=== PATIENT | male | born 1975 | race Caucasian/White ===

== ENCOUNTER 2022-05-09 12:10 | Emergency (ER) | payer MEDICAID, SELFPAY ==
[2022-05-09] VITALS (7 sets, daily range): BP systolic 116–149; BP diastolic 77–97; PULSE 52–79; RESP 16–17; TEMP 36.4; O2SAT 93–100
--- NOTE | 2022-05-09 12:44 | ECG_ITS ---
[facility] Test Date: 2022-05-09 Pat Name: Juan Dey Department: Room: Gender: Male Processing Inspector: : 1975 Requested By: Alonso Bowman Order Number: [id number] Venancio MD: Charmaine Cuevas M.D. Measurements Intervals [place] Rate: 57 P: 59 [place]: 162 QRS: 74 QRSD: 103 T: 64 QT: 410 QTc: 400 Interpretive Statements SINUS BRADYCARDIA No previous ECG available for comparison Electronically Signed On 05-09-2022 21:21:21 CDT by Charmaine Cuevas M.D. [id number]
--- NOTE | 2022-05-09 12:44 | XR_ITS ---
WS: [id number] Exam: XR chest 1V portable [id number] Date/Time of Exam: 05/09/2022 1:01 PM Reason For Exam: dyspnea No priors. Findings: The lungs are clear and fully expanded. Costophrenic angles are sharp. No infiltrates. Bronchovascula r relief appears normal. Cardiac silhouette is unremarkable. Bony elements are intact. XR/XR chest 1V portable [id number] IMPRESSION: Unremarkable chest radiograph.
--- NOTE | 2022-05-09 12:52 | ED_ITS ---
HPI - General Adult General: Chief complaint: Nausea/Vomiting/Diarrhea Stated complaint: Dizzy, whole body numb, vertigo Time Seen by Provider: 05/09/22 12:43 History of Present Illness: Patient is a 47-year-old male with a history of vertigo who presents emergency room with nausea vomiting diaphoresis and vertigo-like sensation for the last hour. Patient says that his vertical sta rted all of a sudden. He reports b/l tinnitus in ears. He tells me in the past when he had vertical symptoms, he has tinnitus in both ears. Patient says that the versus tinnitus that he has experienced so far. Patient says that he had weakness in all of extremity and and vertigo was debilitating to the point where he has a white count. Patient reports multiple episodes of emesis. Shortly bef ore coming to the emergency room, patient reports that his vertigo sensation has stopped suddenly. Patient reports diaphoresis. Patient reports brief shortness of breath but denies any active chest pain during the episode of vertigo. Onset:1 hr ago Duration:1 hr Location:home Severity:moderate/severe Associated symptoms: Reports dyspnea, malaise, nausea and vomiting; Deny chest pain, rash or palpitations Review of Systems Const: Reports: fatigue, malaise and other (light-headedness); Denies: fever(s) or chills Eyes: Denies: change in vision ENMT: Reports: other (+tinnitus b/l); Denies: mouth pain Card: Denies: chest pain or palpitations Resp: Reports: dyspnea; Denies: non-productive cough GI: Reports: nausea and vomiting; Denies: abdominal pain or diarrhea : Denies: dysuria Musc: Denies: extremity pain Skin/Breast: Denies: rash or new lesions Neuro: Reports: other (+vertigo); Denies: weakness in extremities Psych: Reports: other (Normal mood) Martinez/Lymph: Denies: easy bruising PFSH ED PFSH: Medical History MRSA (methicillin resistant Staphylococcus aureus) Tinnitus Vertigo Surgical History History of placement of ear tubes History of surgery on arm Social History Smoking and tobacco status: current every day smoker (half a pack) Alcohol intake: never Physical Exam Const: COMMON NORMALS: alert HENMT: COMMON NORMALS: atraumatic HEAD & SCALP: atraumatic MOUTH: moist mucous membranes not abnormal Eye: COMMON NORMALS: EOMs intact bilaterally and conjunctivae normal CONJUNCTIVA: Yes conjunctivae normal Neck/C-Spine: COMMON NORMALS: full ROM and supple Resp: COMMON NORMALS: normal respiratory effort and clear to auscultation bilaterally AUSCULTATION: clear to auscultation bilaterally Cardio: COMMON NORMALS: regular rate RATE: regular rate GI: COMMON NORMALS: Soft to palpation and non-tender PALPATION: Yes Soft to palpation Extremity: COMMON NORMALS: full ROM Neuro: SENSORIUM/ORIENTATION: Yes alert MOTOR EXAM: No Abnormal motor strength present and Other motor observations present (no focal motor deficits) OTHER: Mental status? Awake, alert, and oriented to self, year, month, location, and situation.? Following simple axial and appendicular commands.? Has appropriate fund of knowledge, comprehension, and insight.? Able to recall and understands pertinent aspects of medical history and current treatment status.? ? Language? Speech is fluent without word-finding difficulties.? Intact naming, expression, reception agent, and repetition.? ? Cranial nerves? 2,3,4,6: PERRL, EOMI with no nystagmus. 5: Intact sensation to light touch, symmetric? 7: Smile symmetrical, no facial droop.? 8: Hearing grossly intact.? 9,10: Normal palate movement.? 11: Normal strength in trapezius bilaterally 12: Tongue protrudes midline.? ? Motor examination? Normal bulk & tone. Strength as follows (R/L): Delts (5/5), Biceps (5/5), Triceps (5/5), Wrist ext (5/5), hip flexors (5/5), plantarflexors (5/5), dorsiflexors (5/5). Sensation? Light Touch: Grossly intact and equal in upper and lower extremities bilaterally? Romberg: Negative.? Distal joint position sense intact ? Coordination? Zywjzl-ko-nizd-finger movements intact without dysmetria or past-pointing.? Rapid fingertaps: preserved amplitude without decriment.? No tremor, myoclonus or truncal ataxia.? ? Gait/stance? Steady, normal narrow base gait with appropriate arm swing and turning.? Tandem gait without hesitation or loss of balance. Psych: COMMON NORMALS: speech normal SPEECH: Yes normal speech MOOD & AFFECT: Yes euthymic mood Course Vital Signs: Vital signs: Vital Signs Temperature 97.6 F 05/09/22 12:38 Pulse Rate 67 05/09/22 16:48 Respiratory Rate 17 05/09/22 16:48 Blood Pressure 133/94 05/09/22 16:48 Pulse Oximetry 93 05/09/22 16:48 [facility] - General Adult Medical Decision Making Patient is a 47-year-old male with history of prior vertigo presenting to the emergency room with concerns of sudden onset bilateral ear ringing and vertigo sensation stopped upon arrival. Patient arrives appears to be mildly diaphoretic. Rest of exam within normal limit. Patient is able to ambulate without any difficulty, patient has intact Romberg and balance. He had persistent vertigo-like symptoms. Decision was made to order CT head and CTA. Imaging study negative for any acute finding. Patient received IVF, meclizine and Ativan reports that his symptoms are significantly improved after observation for 2 hours I have given patient follow up with our senior case manager to be seen by our outpatient ENT for vertigo sensation. Patient aware of a call from our senior case manager to schedule for appointment(s) and verbalizes understanding of the importance of following up. Rx meclizine PRN vertigo Disposition: Discharge. Patient counseled regarding diagnostic impression, treatment plan. Patient given ED strict return precautions to return for continuation, worsening, or development of new symptoms. Instructed to f/u w/ ENT regarding symptoms today. Patient verbalized understanding. Lab Data : 05/09/22 13:00 05/09/22 13:00 Radiology Impressions Chest X-Ray 05/09/22 12:44 IMPRESSION: Unremarkable chest radiograph. Head CT 05/09/22 13:39 IMPRESSION: 1. No evidence of intracranial hemorrhage or mass effect. 2. Normal henderson-white differentiation. 3. No acute intracranial findings. Head/Neck CTA 05/09/22 13:39 IMPRESSION: 1. No significant ICA stenosis bilaterally. 2. Normal intracranial CTA. 3. Codominant and patent vertebral arteries bilaterally. Laboratory Results WBC 9.2 10^3/uL (4.0-10.0) 05/09/22 13:00 RBC 4.84 10^6/uL (4.1-5.3) 05/09/22 13:00 Hgb 15.4 g/dL (11.7-16.6) 05/09/22 13:00 Hct 43.1 % (42.0-52.0) 05/09/22 13:00 MCV 89.0 fl (80-94) 05/09/22 13:00 MCH 31.8 pg (28.0-34.0) 05/09/22 13:00 MCHC 35.7 g/dL (30.0-36.0) 05/09/22 13:00 RDW 12.3 % (12.1-15.1) 05/09/22 13:00 Plt Count 246 10^3/cmm (130-400) 05/09/22 13:00 MPV 10.9 fL (7.4-10.4) H 05/09/22 13:00 Neut % (Auto) 47.0 % 05/09/22 13:00 Lymph % (Auto) 43.7 % 05/09/22 13:00 Yell % (Auto) 7.3 % 05/09/22 13:00 Eos % (Auto) 1.5 % 05/09/22 13:00 Baso % (Auto) 0.3 % 05/09/22 13:00 Neut # (Auto) 4.34 10^3/uL (1.8-7.7) 05/09/22 13:00 Lymph # (Auto) 4.0 10^3/uL (0.8-4.8) 05/09/22 13:00 Yell # (Auto) 0.7 10^3/uL (0.2-0.9) 05/09/22 13:00 Eos # (Auto) 0.1 10^3/uL (0.0-0.8) 05/09/22 13:00 Baso # (Auto) 0.0 10^3/uL (0.0-0.1) 05/09/22 13:00 Nucleated RBC % (auto) 0 % 05/09/22 13:00 Nucleated RBCs # 0.0 /100WBC 05/09/22 13:00 Sodium 135 mmol/L (136-145) L 05/09/22 13:00 Potassium 4.8 mmol/L (3.5-5.1) 05/09/22 13:00 Chloride 98 mmol/L (98-107) 05/09/22 13:00 Carbon Dioxide 27 mmol/L (22-29) 05/09/22 13:00 Anion Gap 14.8 (5-19) 05/09/22 13:00 BUN 15 mg/dL (6-20) 05/09/22 13:00 Creatinine 0.9 mg/dL (0.7-1.2) 05/09/22 13:00 GFR Calculation 89.7 mL/min (90-130) L 05/09/22 13:00 Glucose 135 mg/dL (65-115) H 05/09/22 13:00 POC Glucose 154 mg/dL (70-110) H 05/09/22 12:53 Calculated Osmolality 283 mOsm/kg (285-295) L 05/09/22 13:00 Calcium 9.2 mg/dL (8.5-10.5) 05/09/22 13:00 Total Bilirubin 0.5 mg/dL (0.15-1.2) 05/09/22 13:00 AST 27 U/L (0-40) 05/09/22 13:00 ALT 23 U/L (0-41) 05/09/22 13:00 Alkaline Phosphatase 85 IU/L (40-130) 05/09/22 13:00 Troponin T Baseline 6 ng/L (0-15) 05/09/22 13:00 Troponin T 120 Minute 6.00 ng/L (0-15) 05/09/22 15:23 Delta Troponin T 0 ABS# (0-10) 05/09/22 15:23 Total Protein 7.2 g/dL (6.6-8.7) 05/09/22 13:00 Albumin 4.3 g/dL (3.5-5.2) 05/09/22 13:00 Globulin 2.9 g/dL (1.3-4.6) 05/09/22 13:00 Lipase 12 U/L (13-60) L 05/09/22 13:00 Nasal Influ A H1 2008 PCR Not detected (NOT DETECT) 05/09/22 14:55 Coronavirus 229E (PCR) Not detected (NOT DETECT) 05/09/22 14:55 Influenza A (H1) PCR Not detected (NOT DETECT) 05/09/22 14:55 Influenza A (H3) PCR Not detected (NOT DETECT) 05/09/22 14:55 Influenza Type A (PCR) Not detected (NOT DETECT) 05/09/22 14:55 Influenza Type B (PCR) Not detected (NOT DETECT) 05/09/22 14:55 SARS-CoV-2 (PCR) Not detected (NOT DETECT) 05/09/22 14:55 Imaging Data Other Imaging: Radiologist's impression: Launch?[place] [address] XRay Report Signed Patient: Juan Dey Unit #: [id number] : 1975 Age/Sex: 47 / M ADM Date: 05/09/22 Loc: ER Room/Bed: Attending Dr: Ordering Provider/Ordering MD: Alonso Bowman MD Date of Service: 05/09/22 Procedure(s): XR chest 1V portable [id number] Accession Number(s): [id number] Report Number: [id number] WS: [email or web address] Exam: XR chest 1V portable [id number] Date/Time of Exam: 05/09/2022 1:01 PM Reason For Exam: dyspnea No priors. Findings: The lungs are clear and fully expanded. Costophrenic angles are sharp. No infiltrates. Bronchovascular relief appears normal. Cardiac silhouette is unremarkable. Bony elements are intact. ? XR/XR chest 1V portable [id number] IMPRESSION: Unremarkable chest radiograph. ? ? Dictated By: Nathanael Morris DO Signed By: Nathanael Morris DO Signed Date/Time: 05/09/22 1315 DD/ [address] [place] [address] CT Scan Report Signed Patient: Juan Dey Unit #: [id number] : 1975 Age/Sex: 47 / M ADM Date: 05/09/22 Loc: ER Room/Bed: Attending Dr: Ordering Provider/Ordering MD: Alonso Bowman MD Date of Service: 05/09/22 Procedure(s[facility] [id number] Accession Number(s): [id number] Report Number: [id number] WS: [email or web address] CTA HEAD AND NECK TECHNIQUE: Contrast enhanced CTA of the head and neck with coronal and sagittal reformatted images and maximum intensity projection (MIP) images. NASCET criteria utilized. CLINICAL INFORMATION: vertigo, neuro symptoms, vomiting COMPARISON: None. DLP: 2365.[address] scans at [facility] use at least one of these dose optimization techniques: automated exposure control; mA and/or kV adjustment per patient size (includes targeted exams where dose is matched to clinical indication); or iterative reconstruction. FINDINGS: RIGHT: RIGHT common carotid artery is patent. No significant RIGHT ICA stenosis. ICA is patent to the skull base. Mild carotid bulb calcification. No significant RIGHT ICA stenosis. LEFT: LEFT common carotid artery is patent. No significant LEFT ICA stenosis. LEFT ICA is patent to the skull base. INTRACRANIAL CTA: Distal vertebral arteries are patent. Codominant vertebral arteries bilaterally. Basilar artery is patent. Normal vascularity to the CERAMIC RESTORER territory bilaterally. Both ICAs are patent at the skull base. Normal vascularity to the SHON and MCA territories bilaterally. No evidence of high-grade proximal stenosis or aneurysm. Lung apices are well aerated. Emphysematous changes in the lung apices. Normal parapharyngeal fat. Normal posterior nasopharynx. CT/[facility] [id number] IMPRESSION: ? 1.? No significant ICA stenosis bilaterally. 2.? Normal intracranial CTA. 3.? Codominant and patent vertebral arteries bilaterally. ? Dictated By: Benjamin Moser MD Signed By: Benjamin Moser MD Signed Date/Time: 05/09/22 1458 DD/ [address] [address] [address] Scan Report Signed Patient: Juan Dey Unit #: [id number] : 1975 Age/Sex: 47 / M ADM Date: 05/09/22 Loc: ER Room/Bed: Attending Dr: Ordering Provider/Ordering MD: Alonso Bowman MD Date of Service: 05/09/22 Procedure(s): CT head wo con* [id number] Accession Number(s): [id number] Report Number: [id number] WS: [email or web address] CT HEAD TECHNIQUE: Noncontrast CT of the head obtained from the skullbase to the vertex. CLINICAL INFORMATION: vertigo and neuro symptoms COMPARISON: None. DLP: 814.[address] scans at [facility] use at least one of these dose optimization techniques: automated exposure control; mA and/or kV adjustment per patient size (includes targeted exams where dose is matched to clinical indication); or iterative reconstruction. FINDINGS: No evidence of intracranial hemorrhage or mass effect. Ventricular system and basal cisterns are patent. No extra-axial fluid collections. No evidence of mass or mass effect. Normal henderson-white differentiation. Paranasal sinuses and mastoid air cells are well aerated. .Normal visualized soft tissues. CT/CT head wo con* [id number] IMPRESSION: ? 1.? No evidence of intracranial hemorrhage or mass effect. 2.? Normal henderson-white differentiation. 3.? No acute intracranial findings. ? Dictated By: Benjamin Moser MD Signed By: Benjamin Moser MD Signed Date/Time: 05/09/221446 DD/ 41 Discharge Plan Discharge Patient Disposition: Home Clinical Impression: Vertigo, Nausea and vomiting Condition: Stable Prescriptions: New meclizine 25 mg tablet 25 mg PO TID PRN (Reason: vertigo) Qty: 21 0RF No Action triamterene-hydrochlorothiazid 37.5-25 mg capsule 1 cap PO DAILY Qty: 90 3RF cyclobenzaprine 10 mg tablet 10 mg PO BID 0RF atorvastatin 40 mg tablet 40 mg PO BEDTIME 0RF nicotine 14 mg/24 hr patch 24 hour 14 mg transdermal DAILY 0RF lisinopril 20 mg tablet 20 mg PO QAM 0RF Aspir-81 81 mg Tablet,Delayed Release (Dr/Ec) 81 mg PO QAM 0RF meloxicam 7.5 mg tablet 7.5 mg PO BEDTIME 0RF propranolol 40 mg tablet 40 mg PO BID 0RF oxycodone-acetaminophen 10-325 mg tablet 1 tab PO Q6H PRN (Reason: Pain) 0RF gabapentin 300 mg capsule 900 mg PO TID 0RF sertraline 25 mg tablet 25 mg PO BEDTIME 0RF omeprazole 20 mg capsule,delayed release(DR/EC) 20 mg PO QAM 0RF ProAir HFA 90 mcg/actuation HFA aerosol inhaler 2 puff INHALATION Q6H PRN (Reason: Shortness Of Breath) 0RF buspirone 15 mg tablet 15 mg PO TID 0RF Vitamin D3 25 mcg (1,000 unit) Tablet 25 mcg PO DAILY 0RF Symbicort 160-4.5 mcg/actuation HFA aerosol inhaler 2 puff INHALATION BID 0RF Multivitamins 28 mg iron- 800 mcg Tablet 1 tab PO DAILY 0RF Fiber Gummies 2 gram Tablet,Chewable 2 g PO DAILY 0RF Vitamin B-12 1 tab PO QAM 0RF Discharge Orders: Discharge ED (Routine); Ordered 05/09/22 Ordered By: Alonso Bowman Discharge Diet: Advance as tolerated Discharge Activity: Increase activity as tolerated Patient Instructions: Dizziness (ED) Activity Restrictions/Additional Instructions: Our senior case manager will have you follow-up with an ear/nose/throat provider in the next few days. You would be expected to have a phone call with our senior case manager who will put you on the schedule. You can expect a call from us in the next 2-3 days. If you don't hear from us, call us back in the emergency room at [phone]. Do not take your meclizine and drive at the same time as you can experience significant dizziness. Do not lift. Heavy machinery bathe or swim on your own. Stand Alone Forms: Work/School Release Coding Level of Care Code ED Assistant County Attorney for [place] Fwd Exam Comprehensive
[2022-05-09 13:04] LABS: Glucose Point of Care 154 mg/dL (70-110)
[2022-05-09] MEDS: sodium chloride 0.9% 1,000 ML 999 ML IV (13:05)
[2022-05-09 13:17] LABS: Basophils % 0.3 %; Eosinophils # 0.1 10^3/uL (0.0-0.8); Eosinophils % 1.5 %; Hematocrit 43.1 % (42.0-52.0); Hemoglobin 15.4 g/dL (11.7-16.6); Lymphocytes % 43.7 %; Mean Corpuscular HGB Conc 35.7 g/dL (30.0-36.0); Mean Corpuscular Hemoglobin 31.8 pg (28.0-34.0); Mean Platelet Volume 10.9 fL (7.4-10.4); Monocytes # 0.7 10^3/uL (0.2-0.9); Monocytes % 7.3 %; Neutrophils # 4.34 10^3/uL (1.8-7.7); Nucleated Red Blood Cells % 0 %; Platelet Count 246 10^3/cmm (130-400); Red Blood Count 4.84 10^6/uL (4.1-5.3); Red Cell Distribution Width 12.3 % (12.1-15.1); White Blood Count 9.2 10^3/uL (4.0-10.0)
[2022-05-09] MEDS: lactated ringers 1,000 ML 999 ML IV ×2 (13:21→13:23)
[2022-05-09] MEDS: LORazepam 2 mg Tablet PO (13:23)
[2022-05-09] MEDS: meclizine 25 mg tablet 50 MG PO (13:23)
[2022-05-09 13:29] LABS: Troponin(5th) Baseline 6 ng/L (0-15)
[2022-05-09 13:30] LABS: Albumin Level 4.3 g/dL (3.5-5.2); Alkaline Phosphatase 85 IU/L (40-130); Blood Urea Nitrogen 15 mg/dL (6-20); Calcium 9.2 mg/dL (8.5-10.5); Carbon Dioxide 27 mmol/L (22-29); Chloride 98 mmol/L (98-107); Globulin 2.9 g/dL (1.3-4.6); Glomerular Filtration Rate 89.7 mL/min (90-130); Glucose 135 mg/dL (65-115); Lipase 12 U/L (13-60); Osmolality Calculated 283 mOsm/kg (285-295); Sodium 135 mmol/L (136-145); Total Bilirubin 0.5 mg/dL (0.15-1.2); Total Protein 7.2 g/dL (6.6-8.7)
[2022-05-09 13:38] LABS: Anion Gap 14.8 (5-19); Potassium 4.8 mmol/L (3.5-5.1)
[2022-05-09 13:39] LABS: Alanine Aminotransferase 23 U/L (0-41); Aspartate Amino Transferase 27 U/L (0-40)
--- NOTE | 2022-05-09 13:39 | CT_ITS ---
WS: [email or web address] CT HEAD TECHNIQUE: Noncontrast CT of the head obtained from the skullbase to the vertex. CLINICAL INFORMATION: vertigo and neuro symptoms COMPARISON: None. DLP: 814.[address] scans at [facility] use at least one of these dose optimization techniques: automated e xposure control; mA and/or kV adjustment per patient size (includes targeted exams where dose is matc hed to clinical indication); or iterative reconstruction. FINDINGS: No evidence of intracranial hemorrhage or mass effect. Ventricular system and basal cisterns are kyle nt. No extra-axial fluid collections. No evidence of mass or mass effect. Normal henderson-white different iation. Paranasal sinuses and mastoid air cells are well aerated. .Normal visualized soft tissues. CT/CT head wo con* [id number] IMPRESSION: 1. No evidence of intracranial hemorrhage or mass effect. 2. Normal henderson-white differentiation. 3. No acute intracranial findings.
--- NOTE | 2022-05-09 13:39 | CT_ITS ---
WS: [email or web address] CTA HEAD AND NECK TECHNIQUE: Contrast enhanced CTA of the head and neck with coronal and sagittal reformatted images an d maximum intensity projection (MIP) images. NASCET criteria utilized. CLINICAL INFORMATION: vertigo, neuro symptoms, vomiting COMPARISON: None. DLP: 2365.[address] scans at [facility] use at least one of these dose optimization techniques: automated e xposure control; mA and/or kV adjustment per patient size (includes targeted exams where dose is matc hed to clinical indication); or iterative reconstruction. FINDINGS: RIGHT: RIGHT common carotid artery is patent. No significant RIGHT ICA stenosis. ICA is patent to the skull base. Mild carotid bulb calcification. No significant RIGHT ICA stenosis. LEFT: LEFT common carotid artery is patent. No significant LEFT ICA stenosis. LEFT ICA is patent to t he skull base. INTRACRANIAL CTA: Distal vertebral arteries are patent. Codominant vertebral arteries bilaterally. Basilar artery is pa tent. Normal vascularity to the SENIOR SQL DATABASE DEVELOPER territory bilaterally. Both ICAs are patent at the skull base. Normal vascularity to the SHON and MCA territories bilaterally . No evidence of high-grade proximal stenosis or aneurysm. Lung apices are well aerated. Emphysematous changes in the lung apices. Normal parapharyngeal fat. Normal posterior nasopharynx. CT/CT angio [facility]* [id number] IMPRESSION: 1. No significant ICA stenosis bilaterally. 2. Normal intracranial CTA. 3. Codominant and patent vertebral arteries bilaterally.
[2022-05-09] MEDS: iohexol 350 mg/mL 100 mL Btl IV (14:34)
--- NOTE | 2022-05-09 14:44 | ECG_ITS ---
[facility] Test Date: 2022-05-09 Pat Name: Juan Dey Department: Room: Gender: Male Clinical Informaticist: : 1975 Requested By: Alonso Bowman Order Number: [id number] Venancio MD: Charmaine Cuevas M.D. Measurements Intervals [place] Rate: 67 P: 54 [place]: 177 QRS: 70 QRSD: 107 T: 57 QT: 387 QTc: 411 Interpretive Statements SINUS RHYTHM EARLY REPOLARIZATION [ST ELEVATION WITH NORMALLY INFLECTED T-WAVE] Compared to ECG 05/09/2022 13:00:16 Early repolarization now present Sinus bradycardia no longer present Electronically Signed On 05-09-2022 21:29:04 CDT by Charmaine Cuevas M.D. [id number]
--- NOTE | 2022-05-09 15:48 | PC.SOCIAL ---
Follow Up Appointment Follow up appointment request sent to ENT for severe vertigo.
[2022-05-09 16:30] LABS: Troponin 5 2HR Delta 0 ABS# (0-10)
[2022-05-09 17:02] LABS: Adenovirus Not Detected (NOT DETECT); Chlamydia Pneumoniae Not Detected (NOT DETECT); Coronavirus 229E,HKU1,NL63,OC4 Not Detected (NOT DETECT); Human Metapneumovirus Not Detected (NOT DETECT); Human Rhinovirus/Enterovirus Not Detected (NOT DETECT); Influenza A Not Detected (NOT DETECT); Influenza A H1 Not Detected (NOT DETECT); Influenza A H1-2009 Not Detected (NOT DETECT); Influenza A H3 Not Detected (NOT DETECT); Influenza B Not Detected (NOT DETECT); Mycoplasma Pneumoniae Not Detected (NOT DETECT); Parainfluenza Virus Type 1 Not Detected (NOT DETECT); Parainfluenza Virus Type 2 Not Detected (NOT DETECT); Parainfluenza Virus Type 3 Not Detected (NOT DETECT); Parainfluenza Virus Type 4 Not Detected (NOT DETECT); Respiratory Syncytial Virus A Not Detected (NOT DETECT); Respiratory Syncytial Virus B Not Detected (NOT DETECT); SARS-COV-2 Not Detected (NOT DETECT)
[2022-05-09 17:26] LABS: Results from Genmark
--- NOTE | 2022-05-10 11:19 | PC.SOCIAL ---
Addendum entered by Winifred Erickson 06/03/22 15:56: Patient attended this appointment. Original Note: Follow up with ENT on 05/11 at 0900.
== END 2022-05-09 16:50 | disposition home or self-care (01) ==
PROVIDERS: Emergency Provider Emergency Medicine
DX: R11.2 Nausea with vomiting, unspecified (principal); R42 Dizziness and giddiness; Z79.82 Long term (current) use of aspirin; F17.210 Nicotine dependence, cigarettes, uncomplicated; Z20.822 Contact with and (suspected) exposure to COVID-19
CPT/HCPCS: 36415; 36416; 70450; 70496; 70498; 71045; 80053; 82962; 83690; 84484; 85025; 87631; 87635; 93005; 96360; 96361; 99285; J7030; J8597; Q9967

== ENCOUNTER → 2022-05-11 08:53 | Outpatient (BNVA) | payer MEDICAID, SELFPAY | PROVIDERS: Visit Provider Otolaryngology | DX: H81.09 Meniere's disease, unspecified ear (principal); F17.210 Nicotine dependence, cigarettes, uncomplicated | CPT/HCPCS: 99203 ==

== ENCOUNTER → 2022-06-13 09:04 | Outpatient (BNVA) | payer MEDICAID, SELFPAY | PROVIDERS: Visit Provider Otolaryngology | DX: H81.09 Meniere's disease, unspecified ear (principal); H90.3 Sensorineural hearing loss, bilateral; F17.210 Nicotine dependence, cigarettes, uncomplicated | CPT/HCPCS: 99213 ==

== ENCOUNTER → 2022-07-13 09:16 | Outpatient (BNVA) | payer MEDICAID, SELFPAY | PROVIDERS: Visit Provider Otolaryngology | DX: H81.09 Meniere's disease, unspecified ear (principal); H90.3 Sensorineural hearing loss, bilateral | CPT/HCPCS: 99213 ==

== ENCOUNTER → 2023-01-13 11:14 | Outpatient (BNVA) | payer MEDICAID, SELFPAY | PROVIDERS: Visit Provider Otolaryngology | DX: H81.09 Meniere's disease, unspecified ear (principal); H90.3 Sensorineural hearing loss, bilateral; H93.13 Tinnitus, bilateral; J34.2 Deviated nasal septum; R09.81 Nasal congestion; J30.9 Allergic rhinitis, unspecified | CPT/HCPCS: 99213 ==

== ENCOUNTER → 2023-01-13 11:14 | Outpatient (BNVA) | payer MEDICAID, SELFPAY | PROVIDERS: Visit Provider Otolaryngology | DX: H81.09 Meniere's disease, unspecified ear (principal); H90.3 Sensorineural hearing loss, bilateral; H93.13 Tinnitus, bilateral; J34.2 Deviated nasal septum; R09.81 Nasal congestion; J30.9 Allergic rhinitis, unspecified | CPT/HCPCS: 99213 ==

== ENCOUNTER 2023-03-14 08:00 | Outpatient (CLI) | payer OTHER, SELFPAY | END 2023-03-14 08:01 | disposition home or self-care (01) | LOC: RT 08:03 | PROVIDERS: Visit Provider Dermatology | DX: J44.9 Chronic obstructive pulmonary disease, unspecified (principal); R06.00 Dyspnea, unspecified; R06.02 Shortness of breath | CPT/HCPCS: 94060; J7613 ==

== ENCOUNTER → 2023-05-11 09:35 | Outpatient (BNVA) | payer MEDICAID, SELFPAY | PROVIDERS: Visit Provider Podiatrist Foot & Ankle Surgery | DX: L60.8 Other nail disorders (principal); L60.3 Nail dystrophy | CPT/HCPCS: 11750; 99203 ==

== ENCOUNTER → 2023-05-25 11:05 | Outpatient (BNVA) | payer MEDICAID, SELFPAY | PROVIDERS: Visit Provider Podiatrist Foot & Ankle Surgery | DX: L60.8 Other nail disorders (principal); L60.3 Nail dystrophy; Z98.890 Other specified postprocedural states | CPT/HCPCS: 99213 ==

== ENCOUNTER → 2024-01-12 11:20 | Outpatient (BNVA) | payer MEDICAID, SELFPAY | PROVIDERS: Visit Provider Otolaryngology | DX: H81.03 Meniere's disease, bilateral (principal); H90.3 Sensorineural hearing loss, bilateral; H93.13 Tinnitus, bilateral | CPT/HCPCS: 99213 ==

== ENCOUNTER 2024-07-05 18:35 | Emergency (ER) | payer MEDICAID, SELFPAY ==
[2024-07-05 18:49] VITALS: BMI 24.3
--- NOTE | 2024-07-05 18:49 | ED_ITS ---
HPI - General Adult General: Chief complaint: Medical Clearance Stated complaint: med check Time Seen by Provider: 07/05/24 18:37 History of Present Illness: 49-year-old man who presents the emergen cy room with jailers. He was just incarcerated and he has several medications he is taking that he needs to have cleared to be able to take at long-term. He has no complaints today. No fevers. No chest pain. No altered mental status. No focal motor deficits. Related Data Home Medications Medication Instructions Recorded Confirmed Vitamin B-12 1 tab PO QAM 05/09/22 01/12/24 albuterol sulfate 90 mcg/actuation 2 puff inhalation Q6H PRN 05/09/22 01/12/24 aerosol inhaler (ProAir HFA) Shortness Of Breath aspirin 81 mg tablet,delayed 81 mg PO QAM 05/09/22 01/12/24 release atorvastatin 40 mg tablet 40 mg PO BEDTIME 05/09/22 01/12/24 budesonide-formoterol HFA 160 2 puff inhalation BID 05/09/22 01/12/24 mcg-4.5 mcg/actuation aerosol inhaler (Symbicort) buspirone 15 mg tablet 15 mg PO TID 05/09/22 01/12/24 cholecalciferol (vitamin D3) 25 25 mcg PO DAILY 05/09/22 01/12/24 mcg (1,000 unit) tablet (Vitamin D3) cyclobenzaprine 10 mg tablet 10 mg PO BID 05/09/22 01/12/24 gabapentin 300 mg capsule 900 mg PO TID 05/09/22 01/12/24 inulin 2 gram chewable tablet 2 g PO DAILY 05/09/22 01/12/24 (Fiber Gummies) lisinopril 20 mg tablet 20 mg PO QAM 05/09/22 01/12/24 meloxicam 7.5 mg tablet 7.5 mg PO BEDTIME 05/09/22 01/12/24 nicotine 14 mg/24 hr daily 14 mg transdermal DAILY 05/09/22 01/12/24 transdermal patch omeprazole 20 mg capsule,delayed 20 mg PO QAM 05/09/22 01/12/24 release oxycodone-acetaminophen 10 mg-325 1 tab PO Q6H PRN Pain 06/20/22 02/23/24 mg tablet vit no.95-ferrous 1 tab PO DAILY 05/09/22 01/12/24 fumarate 28 mg-folic acid 800 mcg tablet ( Multivitamins) propranolol 40 mg tablet 40 mg PO BID 05/09/22 01/12/24 sertraline 25 mg tablet 25 mg PO BEDTIME 05/09/22 01/12/24 furosemide 20 mg tablet (Lasix) 10 mg PO BID 06/13/22 01/12/24 Previous Rx's Medication Instructions Recorded meclizine 25 mg tablet 25 mg PO TID PRN vertigo #21 tabs 05/09/22 silver sulfadiazine 1 % topical 1 applic topical BID 2 weeks #50 05/11/23 cream grams loratadine-pseudoephedrine ER 10 1 tab PO DAILY PRN sinus symptoms 07/25/23 mg-240 mg tablet,extended 3 months #90 tabs [id number] (Claritin-D 24 Hour) triamterene 37.5 1 cap PO DAILY #90 caps 07/25/23 mg-hydrochlorothiazide 25 mg capsule glycopyrrolate 1 mg tablet 1 mg PO TID 12 months #180 tabs 08/04/23 (Robinul) loratadine-pseudoephedrine ER 10 1 tab PO DAILY PRN sinus symptoms 08/16/23 mg-240 mg tablet,extended 6 months #90 tabs [id number] (Claritin-D 24 Hour) furosemide 20 mg tablet 10 mg (1/2 x 20 mg) PO BID 12 01/12/24 months #360 tabs glycopyrrolate 1 mg tablet 1 mg PO .QD 12 months #90 tabs 01/12/24 (Robinul) Allergies Allergy/AdvReac Type Severity Reaction Status Date / Time No Known Allergies Allergy Verified 01/12/24 11:22 Review of Systems Narrative: Constitutional symptoms: Negative except as documented in HPI. Skin symptoms: Negative except as documented in HPI. Eye symptoms: Negative except as documented in HPI. ENMT symptoms: Negative except as documented in HPI. Respiratory symptoms: Negative except as documented in HPI. Cardiovascular symptoms: Negative except as documented in HPI. Gastrointestinal symptoms: Negative except as documented in HPI. Genitourinary symptoms: Negative except as documented in HPI. Musculoskeletal symptoms: Negative except as documented in HPI. Neurologic symptoms: Negative except as documented in HPI. Psychiatric symptoms: Negative except as documented in HPI. Endocrine symptoms: Negative except as documented in HPI. PFSH ED PFSH: Medical History MRSA (methicillin resistant Staphylococcus aureus) Tinnitus Vertigo Surgical History History of surgery on arm History of placement of ear tubes Social History Smoking and tobacco/nicotine status: current every day tobacco/nicotine user (half a pack) Alcohol intake: never Substance/Drug Use: never Physical Exam Narrative: EXAM NARRATIVE: General: Alert, no acute distress. Skin: Warm, dry. Head: Normocephalic, atraumatic. Neck: Supple, trachea midline. Eye: Extraocular movements are intact. Ears, nose, mouth and throat: mucosa moist. Cardiovascular: Regular, Normal peripheral perfusion. Respiratory: Lungs are clear to auscultation, respirations are non-labored, breath sounds are equal, Symmetrical chest wall expansion. Gastrointestinal: Soft, Nontender, Non distended Musculoskeletal: Normal ROM, no deformity. Neurological: Alert and oriented, No focal neurological deficit observed. Psychiatric: Cooperative, appropriate mood & affect. MDM - General Adult Medical Decision Making The following medications were approved at his home dosage. Diclofenac as needed, sumatriptan as needed, Ventolin as needed, meloxicam as needed, t amsulosin, gabapentin, atorvastatin, propranolol, aspirin, omeprazole, sertraline, buspirone, cyclobenzaprine as needed, fluoxetine, lisinopril, and Symbicort. Assessment and plan: Medical clearance for medications for present. - Discharged home - Discussed plan with patient. Answered any questions. - Evaluation and treatment of this problem were appropriate in the emergency setting. No radiology studies performed this visit Discharge Plan Discharge Patient Disposition: Home Clinical Impression: Medical clearance for incarceration Condition: Stable Prescriptions: No Action silver sulfadiazine 1 % cream 1 applic topical BID 14 Days Qty: 50 2RF Rx Instructions: apply a 1.5 mm thickness furosemide [Lasix] 20 mg tablet 10 mg PO BID glycopyrrolate [Robinul] 1 mg tablet 1 mg PO .QD 360 Days Qty: 90 3RF furosemide 20 mg tablet 10 mg PO BID 360 Days Qty: 360 3RF triamterene-hydrochlorothiazid 37.5-25 mg capsule 1 cap PO DAILY Qty: 90 3RF Claritin-D 24 Hour 10-240 mg tablet extended release 24 hr 1 tab PO DAILY PRN (Reason: sinus symptoms) 90 Days Qty: 90 3RF glycopyrrolate [Robinul] 1 mg tablet 1 mg PO TID 360 Days Qty: 180 3RF Claritin-D 24 Hour 10-240 mg tablet extended release 24 hr 1 tab PO DAILY PRN (Reason: sinus symptoms) 180 Days Qty: 90 1RF meclizine 25 mg tablet 25 mg PO TID PRN (Reason: vertigo) Qty: 21 0RF cyclobenzaprine 10 mg tablet 10 mg PO BID atorvastatin 40 mg tablet 40 mg PO BEDTIME nicotine 14 mg/24 hr patch 24 hour 14 mg transdermal DAILY lisinopril 20 mg tablet 20 mg PO QAM Aspir-81 81 mg Tablet,Delayed Release (Dr/Ec) 81 mg PO QAM meloxicam 7.5 mg tablet 7.5 mg PO BEDTIME propranolol 40 mg tablet 40 mg PO BID oxycodone-acetaminophen 10-325 mg tablet 1 tab PO Q6H PRN (Reason: Pain) gabapentin 300 mg capsule 900 mg PO TID sertraline 25 mg tablet 25 mg PO BEDTIME omeprazole 20 mg capsule,delayed release(DR/EC) 20 mg PO QAM ProAir HFA 90 mcg/actuation HFA aerosol inhaler 2 puff INHALATION Q6H PRN (Reason: Shortness Of Breath) buspirone 15 mg tablet 15 mg PO TID Vitamin D3 25 mcg (1,000 unit) Tablet 25 mcg PO DAILY Symbicort 160-4.5 mcg/actuation HFA aerosol inhaler 2 puff INHALATION BID Multivitamins 28 mg iron- 800 mcg Tablet 1 tab PO DAILY Fiber Gummies 2 gram Tablet,Chewable 2 g PO DAILY Vitamin B-12 1 tab PO QAM Discharge Orders: Discharge ED (Routine); Ordered 07/05/24 Ordered By: Vandana Causey Discharge Diet: Usual diet Discharge Activity: Resume usual activity Activity Restrictions/Additional Instructions: Thank you for choosing [facility] for your healthcare needs today. Please realize this is an emergency room and that we are providing you with a medical screening exam and this may not be complete and all inclusive of all the testing and or work up that you may need to determine your ailment or severity of your illness. You have been screened and evaluated and felt safe for discharge. Health conditions do change or evolve sometimes and as such it is important that you follow up with your Primary Doctor to be re checked, 3-5 days is a general good time frame for follow up. You are always welcome to return to the ED for re assessment if your symptoms are worsening or you have new concerns Coding Level of Care Code ED Dock Boss for Kelly Garcia
[2024-07-05 19:32] VITALS: PULSE 84; RESP 18; O2SAT 97
== END 2024-07-05 19:31 | disposition home or self-care (01) ==
PROVIDERS: Emergency Provider Emergency Medicine
DX: Z00.00 Encounter for general adult medical examination without abnormal findings (principal)
CPT/HCPCS: 99281

== ENCOUNTER → 2024-11-28 14:10 | Outpatient (BNVA) | payer MEDICAID, SELFPAY | PROVIDERS: Visit Provider Orthopaedic Surgery | DX: M54.2 Cervicalgia (principal) | CPT/HCPCS: 72050; 99204 ==

== ENCOUNTER → 2024-12-17 13:25 | Outpatient (BNVA) | payer MEDICAID, SELFPAY | PROVIDERS: Visit Provider Student in an Organized Health Care Education/Training Program | DX: S46.002A Unspecified injury of muscle(s) and tendon(s) of the rotator cuff of left shoulder, initial encounter; W17.89XA Other fall from one level to another, initial encounter; S49.92XA Unspecified injury of left shoulder and upper arm, initial encounter; M75.102 Unspecified rotator cuff tear or rupture of left shoulder, not specified as traumatic | CPT/HCPCS: 73030; 99203 ==

== ENCOUNTER 2024-12-23 15:02 | Outpatient (CLI) | payer MEDICAID, SELFPAY ==
--- NOTE | 2024-12-23 15:15 | MR_ITS ---
WS: [id number] MRI LEFT SHOULDER NONCONTRAST TECHNIQUE: Sagittal T2, coronal T1, T2 and proton density imaging. Axial gradient PDE imaging. CLINICAL INFORMATION: left shoulder injury COMPARISON: None. FINDINGS: Advanced degenerative arthritis AC joint with fluid and edema. Edema within the distal clavicle and a cromion with subchondral cystic changes. Associated fluid and edema with synovial thickening. Mild do wnsloping acromion. Slight impingement distal supraspinatus. Bone marrow edema in the distal clavicl e and acromion. Recommend correlation for synovitis. Small amount of subacromial and subdeltoid fluid . Mild tendinopathy distal supraspinatus. Normal infraspinatus. Normal teres minor. Normal subscapulari s. Normal biceps tendon in the bicipital groove. Moderate degenerative narrowing of the glenohumeral articulation. Cystic degenerative change of the greater tuberosity. Intra-articular biceps tendon dah[place] ears intact. MR/MR shoulder LT wo con* [id number] IMPRESSION: 1. Advanced degenerative change at the AC joint with subchondral cystic change s with fluid and edema. Recommend correlation for inflammatory synovitis. Recom mend correlation with AC joint injury 2. Slight impingement distal supraspinatus with mild tendinopathy. Rotator cuf f is otherwise normal in appearance. 3. Normal biceps tendon in the bicipital groove. 4. Intra-articular biceps tendon appears intact. 5. Moderate degenerative narrowing of the glenohumeral articulation.
== END 2024-12-23 15:03 | disposition home or self-care (01) ==
PROVIDERS: PCP Family Medicine; Visit Provider Student in an Organized Health Care Education/Training Program
DX: S49.92XA Unspecified injury of left shoulder and upper arm, initial encounter (principal); M75.102 Unspecified rotator cuff tear or rupture of left shoulder, not specified as traumatic; X58.XXXA Exposure to other specified factors, initial encounter; M19.012 Primary osteoarthritis, left shoulder; R93.6 Abnormal findings on diagnostic imaging of limbs
CPT/HCPCS: 73221

== ENCOUNTER 2025-01-14 12:00 | Emergency (ER) | payer MEDICAID, SELFPAY ==
[2025-01-14 12:03] VITALS: BP 114/76; PULSE 72; RESP 16; TEMP 36.4; O2SAT 96; BMI 25.7
--- NOTE | 2025-01-14 12:34 | XRR_ITS ---
PROCEDURE INFORMATION: Exam: XR Left Hand Exam date and time: 01/14/2025 12:57 PM Age: 49 years old Clinical indication: Injury or trauma; Other: Hand vs wood splitter; Blunt trauma (contusions or hematomas); Left TECHNIQUE: Imaging protocol: Radiologic exam of the left hand. Views: 3 or more views. COMPARISON: No relevant prior studies available. FINDINGS: Bones/joints: Acute displaced fracture of the 4th digit distal phalanx with dorsal displacement of the distal fragment. Fracture does not appear to involve the DIP joint. Acute fracture of the 5th digit distal phalanx tuft, possible minimal displacement. Soft tissues: Soft tissue injury of the 4th and 5th digits. No radiopaque foreign bodies. XR/XR hand LT min 3V* [id number] IMPRESSION: Acute fractures of the 4th and 5th digit distal phalanges as above. No radiopaque foreign bodies.
--- NOTE | 2025-01-14 12:35 | W.ED.WOUNDLC ---
HPI - Wound/Laceration General: Chief Complaint: Wound/Laceration Stated Complaint: left hand fingers cut, bleeding Time Seen by Provider: 01/14/25 12:10 Source: patient Mode of arrival: ambulatory Limitations: no limitations History of Present Illness: Patient is a 49-year-old male who presents to the ER for evaluation of a left hand/finger injury that he sustained about an hour ago while he was using a log splitter at home and his glove caught. Patient states he is up-to-date on tetanus and had it within the year. Onset (ago): hour(s) Location: other (Left 4-5 fingers) Extremity Location: Left: hand (4th and 5th) Place: home Patient tetanus UTD: Yes Context: accidental Associated symptoms: Reports no associated symptoms; Denies chills, fever(s), nausea or vomiting Related Data Home Medications ?Medication ?Instructions ?Recorded ?Confirmed aspirin 81 mg tablet,delayed 81 mg PO QAM 05/09/22 01/14/25 release atorvastatin 40 mg tablet 40 mg PO BEDTIME 05/09/22 01/14/25 budesonide-formoterol HFA 160 2 puff inhalation BID 05/09/22 01/14/25 mcg-4.5 mcg/actuation aerosol inhaler (Symbicort) cholecalciferol (vitamin D3) 25 25 mcg PO DAILY 05/09/22 01/14/25 mcg (1,000 unit) tablet (Vitamin D3) lisinopril 20 mg tablet 20 mg PO QAM 05/09/22 01/14/25 omeprazole 20 mg capsule,delayed 20 mg PO QAM 05/09/22 01/14/25 release vit no.95-ferrous 1 tab PO DAILY 05/09/22 01/14/25 fumarate 28 mg-folic acid 800 mcg tablet ( Multivitamins) propranolol 40 mg tablet 40 mg PO BID 05/09/22 01/14/25 sertraline 25 mg tablet 25 mg PO BEDTIME 05/09/22 01/14/25 albuterol sulfate 90 mcg/actuation 2 puff inhalation Q6H PRN Wheezing 01/14/25 01/14/25 aerosol inhaler (Ventolin HFA) cyanocobalamin (vitamin B-12) 50 50 mcg PO DAILY 01/14/25 01/14/25 mcg tablet (Vitamin B-12) gabapentin 800 mg tablet 800 mg PO TID 01/14/25 01/14/25 meloxicam 15 mg tablet 15 mg PO DAILY 01/14/25 01/14/25 tamsulosin 0.4 mg capsule 0.8 mg PO DAILY 01/14/25 01/14/25 Previous Rx's ?Medication ?Instructions ?Recorded meclizine 25 mg tablet 25 mg PO TID PRN vertigo #21 tabs 05/09/22 triamterene 37.5 1 cap PO DAILY #90 caps 07/25/23 mg-hydrochlorothiazide 25 mg capsule loratadine-pseudoephedrine ER 10 1 tab PO DAILY PRN sinus symptoms 08/16/23 mg-240 mg tablet,extended 6 months #90 tabs [id number] (Claritin-D 24 Hour) furosemide 20 mg tablet 10 mg (1/2 x 20 mg) PO BID 12 01/12/24 months #360 tabs hydrocodone 5 mg-acetaminophen 325 1 tab PO Q6H PRN pain #14 tabs 01/14/25 mg tablet sulfamethoxazole 800 1 tab PO BID 7 days #14 tabs 01/14/25 mg-trimethoprim 160 mg tablet (Bactrim DS) Allergies Allergy/AdvReac Type Severity Reaction Status Date / Time No Known Allergies Allergy Verified 01/14/25 12:01 Review of Systems Const: Denies: fever(s), chills or body aches Card: Denies: chest pain or palpitations Resp: Denies: dyspnea GI: Denies: nausea or vomiting Musc: Reports: extremity pain (4-5 L fingers); Denies: joint redness or joint warmth Neuro: Denies: headache(s), numbness in extremities or sensory changes PFSH ED PFSH: Medical History MRSA (methicillin resistant Staphylococcus aureus) Tinnitus Vertigo Surgical History History of surgery on arm History of placement of ear tubes Social History Smoking and tobacco/nicotine status: current every day tobacco/nicotine user Alcohol intake: never Substance/Drug Use: never Physical Exam Const: COMMON NORMALS: no acute distress, patient oriented x3, no limitations and well nourished GENERAL APPEARANCE: cooperative ORIENTATION/CONSCIOUSNESS: Yes awake, Yes oriented to person, Yes oriented to place and Yes oriented to time Resp: COMMON NORMALS: clear to auscultation bilaterally AUSCULTATION: clear to auscultation bilaterally Cardio: COMMON NORMALS: regular rate and regular rhythm RATE: regular rate RHYTHM: regular rhythm Extremity: LEFT UPPER EXTREMITY: Yes hand & digits (contusion involving 4-5 distal phalanx; no nail lac/avulsion) Left hand and digits: Yes inspection (contusion/abrasions/one small laceration noted), Yes ROM (pain with ROM at 4-5 DIP/PIP joints), Yes neurovascular exam (normal) and Yes tendon exam (no tendon involvement) Neuro: COMMON NORMALS: patient oriented x3 SENSORIUM/ORIENTATION: Yes oriented to person, Yes oriented to place and Yes oriented to time Skin: NARRATIVE SKIN EXAM: see above TRAUMA: laceration (L hand, 4thand 5th metacarpal ) irregular, flap and sensation intact Procedures Laceration Laceration 1: Site: hand (5th) Side (If applicable): left Size (cm): 0.75 Description: linear Local Anesthetic: lidocaine 2% (digital block) Amount of anesthesia used (mL): 3 Pre-repair: wound explored and irrigated extensively Skin layer closed with: nylon Size (cm): 4-0 Number of sutures: 1 Technique: simple, interrupted Course Vital Signs: Vital signs: Vital Signs Temperature 97.6 F 01/14/25 12:03 Pulse Rate 70 01/14/25 12:59 Respiratory Rate 20 H 01/14/25 13:09 Blood Pressure 110/78 01/14/25 12:59 Pulse Oximetry 96 01/14/25 13:09 Oxygen Delivery Me thod Room Air 01/14/25 12:59 MDM - Wound/Laceration Medical Decision Making Patient here with contusions involving the left fourth and fifth fingers after he got them caught in a wood splitter. Tetanus is up-to-date. XR showing distal phalanx fractures involving both digits. Wounds were copiously irrigated with betadine and normal saline and viciously scrubbed to prevent infection. Patient will be covered with antibiotics. Will splint the digits and have him follow-up with orthopedics. Medical Records I reviewed the patient's medical records. Lab Data Radiology Impressions Hand X-Ray 01/14/25 12:34 IMPRESSION: Acute fractures of the 4th and 5th digit distal phalanges as above. No radiopaque foreign bodies. All radiology interpretation(s) finalized by discharge Discharge Plan Discharge Patient Disposition: Home Clinical Impression: Closed fracture of distal phalanx of left ring finger Qualifiers: Encounter type: initial encounter Fracture alignment: nondisplaced Qualified Code(s): S62.665A - Nondisplaced fracture of distal phalanx of left ring finger, initial encounter for closed fracture Closed fracture of distal phalanx of left little finger Qualifiers: Encounter type: initial encounter Fracture alignment: nondisplaced Qualified Code(s): S62.667A - Nondisplaced fracture of distal phalanx of left little finger, initial encounter for closed fracture Condition: Stable Prescriptions: New hydrocodone-acetaminophen 5-325 mg tablet 1 tab PO Q6H PRN (Reason: pain) Qty: 14 0RF sulfamethoxazole-trimethoprim [Bactrim DS] 800-160 mg tablet 1 tab PO BID 7 Days Qty: 14 0RF No Action furosemide 20 mg tablet 10 mg PO BID 360 Days Qty: 360 3RF triamterene-hydrochlorothiazid 37.5-25 mg capsule 1 cap PO DAILY Qty: 90 3RF Claritin-D 24 Hour 10-240 mg tablet extended release 24 hr 1 tab PO DAILY PRN (Reason: sinus symptoms) 180 Days Qty: 90 1RF meclizine 25 mg tablet 25 mg PO TID PRN (Reason: vertigo) Qty: 21 0RF atorvastatin 40 mg tablet 40 mg PO BEDTIME lisinopril 20 mg tablet 20 mg PO QAM aspirin [Aspir-81] 81 mg Tablet,Delayed Release (Dr/Ec) 81 mg PO QAM propranolol 40 mg tablet 40 mg PO BID sertraline 25 mg tablet 25 mg PO BEDTIME omeprazole 20 mg capsule,delayed release(DR/EC) 20 mg PO QAM cholecalciferol (vitamin D3) [Vitamin D3] 25 mcg (1,000 unit) Tablet 25 mcg PO DAILY budesonide-formoterol [Symbicort] 160-4.5 mcg/actuation HFA aerosol inhaler 2 puff INHALATION BID PNV cmb#95-ferrous fumarate-FA [ Multivitamins] 28 mg iron- 800 mcg Tablet 1 tab PO DAILY albuterol sulfate [Ventolin HFA] 90 mcg/actuation HFA aerosol inhaler 2 puff INHALATION Q6H PRN (Reason: Wheezing) meloxicam 15 mg tablet 15 mg PO DAILY Vitamin B-12 50 mcg Tablet 50 mcg PO DAILY tamsulosin 0.4 mg capsule 0.8 mg PO DAILY gabapentin 800 mg tablet 800 mg PO TID Discharge Orders: Discharge ED (Routine); Ordered 01/14/25 Ordered By: Michelle Monk Referrals: Farhan Linda MD [Primary Care Provider] - Patient Instructions: Fractures - Phalanx (Finger), Finger Fracture (ED), Opioid Safety, Pain Management Activity Restrictions/Additional Instructions: Keep wound/laceration clean with warm soap and water twice daily. Monitor for signs of infection such as redness, swelling, increased pain, or drainage. Please seek medical re-evaluation if these occur. As we discussed, we will have you follow-up with orthopedics. Case management should contact you regarding this appointment. Please fill your antibiotics and start them immediately. Print Language: Sri [place]ankan Coding Level of Care Code ED Central Lab Technician for Kelly Garcia
[2025-01-14 12:59] VITALS: BP 110/78; PULSE 70; O2SAT 96
[2025-01-14 13:09] VITALS: RESP 20; O2SAT 96
[2025-01-14] MEDS: morphine 4 mg/mL SDV 1 mL IM (13:09)
[2025-01-14] MEDS: ondansetron 2 mg/ML SDV 2 mL 4 MG IM (13:09)
[2025-01-14] MEDS: ceFAZolin 1,000 MG in water for injection-sterile 2.5 ML 2.5 MG IM (13:24)
[2025-01-14] MEDS: lidocaine 2% INJ 20 mL INJECTION (13:26)
--- NOTE | 2025-01-14 13:51 | PC.NURSE ---
pt's left hand fingers cleansed with NS and pat dry. gauze placed over laceration.
[2025-01-14 15:07] VITALS: BP 131/90; PULSE 79; O2SAT 95
--- NOTE | 2025-01-15 07:31 | DCPLANNER ---
Message sent to Ortho for referral- Patient here with contusions involving the left fourth and fifth fingers after he got them caught in a wood splitter. Tetanus is up-to-date. XR showing distal phalanx fractures involving both digits. Wounds were copiously irrigated with betadine and normal saline and viciously scrubbed to prevent infection. Patient will be covered with antibiotics. Will splint the digits and have him follow-up with orthopedics.
== END 2025-01-14 15:09 | disposition home or self-care (01) ==
PROVIDERS: Emergency Provider Physician Assistant; PCP Family Medicine
DX: S62.665A Nondisplaced fracture of distal phalanx of left ring finger, initial encounter for closed fracture (principal); S62.667A Nondisplaced fracture of distal phalanx of left little finger, initial encounter for closed fracture; S61.217A Laceration without foreign body of left little finger without damage to nail, initial encounter; X58.XXXA Exposure to other specified factors, initial encounter; Z79.82 Long term (current) use of aspirin; Z72.0 Tobacco use
CPT/HCPCS: 12001; 73130; 96372; 99284; J0690; J2270; J2405

== ENCOUNTER → 2025-01-15 11:01 | Outpatient (BNVA) | payer MEDICAID, SELFPAY | PROVIDERS: PCP Family Medicine; Visit Provider Psychiatry & Neurology Psychiatry | DX: Z79.899 Other long term (current) drug therapy (principal) | CPT/HCPCS: 80061; 83036 ==

== ENCOUNTER 2025-01-16 11:41 | Day surgery (SDC) | payer MEDICAID, SELFPAY ==
[2025-01-16] VITALS (8 sets, daily range): BP systolic 134–164; BP diastolic 84–95; PULSE 76–102; RESP 18; TEMP 36.1–36.2; O2SAT 94–96; BMI 26.3
--- NOTE | 2025-01-16 | XR_ITS ---
WS: [id number] XR hand LT min 3V* [id number] REASON FOR EXAM: HARINDER PICS FINDINGS: Removal of long pin from the fourth distal phalanx fracture. No remnant appliance post removal. XR/XR hand LT min 3V* [id number] IMPRESSION: Hardware removal as above.
--- NOTE | 2025-01-16 14:08 | W.PM.OPSUD ---
Surgery/Procedure H&P Update DATE OF PROCEDURE: January 16, 2025 DATE H&P PERFORMED: 01/15/25 H&P UPDATE INFORMATION: I have reviewed H&P completed within last 30 days, I have examined patient prior to procedure and No changes to prior documentation PREOP DIAGNOSIS: Left small and ring finger crush injury subungual hematoma, distal phalanx PRIMARY INDICATION FOR PROCEDURE: Left small and ring finger crush injury subungual hematoma, distal phalanx fracture, nailbed injury PLANNED PROCEDURE: Operation Date: 01/16/25 15:25 Proposed Procedures p left small finger irrigation and debridement and left ring finger(Left) - Skip Mchugh DO s Left small finger Nail Bed Repair and left ring finger nail bed repair(Left) - DO estevan Doshi Left small finger possible distal phalanx pinning and left ring finger possible distal phalanx pinning(Left) - Skip Mchugh DO
[2025-01-16] MEDS: sodium chloride 0.9% 1,000 ML 30 ML (14:40)
[2025-01-16] MEDS: acetaminophen 1,000 MG/100 ML PIGGYBACK 400 MG IV (14:41)
[2025-01-16] MEDS: scopolamine 1 mg PATCH 1 PATCH TRANSDERMA (14:42)
[2025-01-16] MEDS: ketorolac 30 mg/mL INJ IVP (14:42)
--- NOTE | 2025-01-16 14:48 | ANES.PREANE2 ---
Pre-Anesthetic Assessment Height/Weight: Height 1.83 m O2 Del Method Room Air 01/16/25 13:38 Preop Diagnosis: Left small and ring finger crush injury subungual hematoma, distal phalanx Operation Date: 01/16/25 15:25 Proposed Procedures p left small finger irrigation and debridement and left ring finger(Left) - Skip Mchugh DO s Left small finger Nail Bed Repair and left ring finger nail bed repair(Left) - Skip Mchugh DO s Left small finger possible distal phalanx pinning and left ring finger possible distal phalanx pinning(Left) - Skip Mchugh DO Familial anesthetic complications: None Was Beta Billy taken within 24 hours: N/A Was Clonidine taken within 24 hours: N/A Last intake: Intake Last Liquid Date 01/15/25 Last Liquid Time 05:00 Last Solid Date 01/15/25 Last Solid Time 22:00 Social No alcohol and No tobacco Exam alert, oriented x 3, clear to auscultation bilaterally and regular rate & rhythm Airway Mallampati: Class II Dentition: full Pulmonary Chronic Obstructive Pulmonary Disease Flu A- last month and took prednisone course States he's back to his baseline respiratory status CV/HEM Hypertension Neuropsych Neuropathy Anesthetic Plan ASA status: 3 Anesthesia: Choice Risk of > 500 ml blood loss (7ml/kg in children): No Medications/Allergies Home Medications ?Medication ?Instructions ?Recorded ?Confirmed ?Last Taken ?Type aspirin 81 mg tablet,delayed 81 mg PO QAM 05/09/22 01/16/25 01/16/25 History release atorvastatin 40 mg tablet 40 mg PO BEDTIME 05/09/22 01/16/25 01/15/25 History budesonide-formoterol HFA 160 2 puff inhalation BID 05/09/22 01/16/25 01/14/25 History mcg-4.5 mcg/actuation aerosol inhaler (Symbicort) cholecalciferol (vitamin D3) 25 25 mcg PO DAILY 05/09/22 01/16/25 01/14/25 History mcg (1,000 unit) tablet (Vitamin D3) lisinopril 20 mg tablet 20 mg PO QAM 05/09/22 01/16/25 01/16/25 History meclizine 25 mg tablet 25 mg PO TID PRN vertigo #21 tabs 05/09/22 01/16/25 Unknown Rx omeprazole 20 mg capsule,delayed 20 mg PO QAM 05/09/22 01/16/25 01/16/25 History release vit no.95-ferrous 1 tab PO DAILY 05/09/22 01/16/25 01/16/25 History fumarate 28 mg-folic acid 800 mcg tablet ( Multivitamins) propranolol 40 mg tablet 40 mg PO BID 05/09/22 01/16/25 01/16/25 History sertraline 25 mg tablet 25 mg PO BEDTIME 05/09/22 01/16/25 01/15/25 History loratadine-pseudoephedrine ER 10 1 tab PO DAILY PRN sinus symptoms 08/16/23 01/16/25 Unknown Rx mg-240 mg tablet,extended 6 months #90 tabs [id number] (Claritin-D 24 Hour) furosemide 20 mg tablet 10 mg (1/2 x 20 mg) PO BID 12 01/12/24 01/16/25 01/16/25 Rx months #360 tabs albuterol sulfate 90 mcg/actuation 2 puff inhalation Q6H PRN Wheezing 01/14/25 01/16/25 01/14/25 History aerosol inhaler (Ventolin HFA) cyanocobalamin (vitamin B-12) 50 50 mcg PO DAILY 01/14/25 01/16/25 01/14/25 History mcg tablet (Vitamin B-12) gabapentin 800 mg tablet 800 mg PO TID 01/14/25 01/16/25 01/16/25 History hydrocodone 5 mg-acetaminophen 325 1 tab PO Q6H PRN pain #14 tabs 01/14/25 01/16/25 01/15/25 Rx mg tablet meloxicam 15 mg tablet 15 mg PO DAILY 01/14/25 01/16/25 01/16/25 History sulfamethoxazole 800 1 tab PO BID 7 days #14 tabs 01/14/25 01/16/25 01/16/25 Rx mg-trimethoprim 160 mg tablet (Bactrim DS) tamsulosin 0.4 mg capsule 0.8 mg PO DAILY 01/14/25 01/16/25 01/15/25 History Allergies Allergy/AdvReac Type Severity Reaction Status Date / Time No Known Allergies Allergy Verified 01/16/25 13:28 [facility] Anesthesia Medical History Psychiatric care MRSA (methicillin resistant Staphylococcus aureus) Tinnitus Vertigo Surgical History History of surgery on arm History of placement of ear tubes Family History Other Anxiety Bipolar disorder Diabetes Hypertension Social History Smoking and tobacco/nicotine status: current every day tobacco/nicotine user cigarettes Packs smoked per day: 0.3 and e-cigarettes E-Cigarette Details: e-cigarette and with nicotine E-cig/vape details: 30,000 puffs last about 2 weeks Quit status (tobacco/nicotine): not considering quitting Second hand smoke exposure: Yes Alcohol intake: never Substance/Drug Use: former 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 Adopted: No Caregiver/support person: No Lives independently: Yes Household members: other Details: 6 other residents in the house Housing: House Marital status: Single Number of children: 3 Number of grandchildren: 5 Highest education level completed: GED or Equivalent service: No Current occupational status: disabled Pets and animals: No Leisure activites: other Leisure activities details: ride [place], play guitar and play with dogs Sexually active: No Do you think of yourself as: Straight/Heterosexual Current gender identity: Male Giovanna/Mormonism: Confucianism Special giovanna needs: No Agree to transfusion: Yes Data Anesthesia Cardiac Studies: No Data to Display
[2025-01-16 15:46] LABS: Alanine Aminotransferase 16 U/L (0-41); Alkaline Phosphatase 67 U/L (40-130); Anion Gap 10.6 (5-19); Aspartate Amino Transferase 18 U/L (0-40); Blood Urea Nitrogen 19 mg/dL (6-20); Calcium 8.7 mg/dL (8.5-10.5); Carbon Dioxide 29 mmol/L (22-29); Chloride 103 mmol/L (98-107); Creatinine Clr Calc Pharmacy 126.3287; Glomerular Filtration Rate 101.9 mL/min (90-130); Glucose 110 mg/dL (65-115); Osmolality Calculated 291 mOsm/kg (285-295); Potassium 3.6 mmol/L (3.5-5.1); Sodium 139 mmol/L (136-145); Total Bilirubin 0.4 mg/dL (0.15-1.2)
[2025-01-16] MEDS: ceFAZolin 2,000 MG in sodium chloride 0.9% (plus) 50 ML 100 MG IV (16:23)
[2025-01-16] MEDS: ROPivacaine 0.5% SDV 30 mL 150 MG INJECTION (17:05)
[2025-01-16] MEDS: lidocaine 1% 10 ML INJ XX (17:05)
--- NOTE | 2025-01-16 17:44 | W.PM.BPON ---
Date of Procedure: [January 16, 2025] Surgeon: [Dr. Jeison DO] Salesperson Flowers(s): [Shaquille sam PA-C] Procedure(s) performed: [Left small finger irrigation and debridement Left ring finger Irrigation and debridement Percutaneous pinning of left ring finger distal phalanx Left small finger nailbed repair Left ring finger nailbed repair] Findings of the procedure(s): [Left small finger distal phalanx fracture and left ring finger distal phalanx displaced fracture. Left ring finger left small finger nailbed lacerations. Procedure went as planned.] Estimated blood loss: [5 ml] Specimen(s) removed: [n/a] Post-operative diagnosis: [Left small finger distal phalanx fracture and left ring finger distal phalanx displaced fracture. Left ring finger left small finger nailbed lacerations]
--- NOTE | 2025-01-16 17:49 | PM.PACU ---
PACU note Narrative: Patient is a 49-year-old male who just underwent a left ring and left little finger I&D and percutaneous pinning and left ring finger. Patient transferred to PACU in stable condition. Pain is well controlled. Splint and Dressing on hand is dry and in place. Patient's thumb, index and middle fingers are warm and well-perfused. Patient can wiggle those fingers and has normal cap refill under 2 seconds. Patient has normal elbow range of motion. sensation to hand intact. Exam: awake Disposition: discharged
--- NOTE | 2025-01-16 18:33 | PC.NURSE ---
pt took hydrocodone rx that was delivered to his room after surger. took one tab
--- NOTE | 2025-01-16 18:45 | ANE.PACU2 ---
Inpatient post-anesthesia follow up: Airway intact: Yes Vital signs: Temperature 97.1 F Pulse Rate 80 Respiratory Rate 18 Blood Pressure 151/84 Pulse Oximetry 96 Oxygen Delivery Me thod Room Air Oxygen Flow Rate Fraction of Inspir ed Oxygen Hydration adequate: Yes Nausea and vomiting: No Pain level: 1 Mental status: Baseline
--- NOTE | 2025-01-16 20:21 | P.OP_ITS ---
Operative Report Date of procedure: January 16, 2025 Pre-op diagnosis: Left small and ring finger crush injury subungual hematoma, distal phalanx fracture, nailbed injury Post-op diagnosis: same Procedure done: Left small finger irrigation and debridement (1.5 cm x 1.5 cm x 0.5 cm Left small finger nailbed repair Closed treatment left small finger distal phalanx fracture Left ring finger irrigation and debridement (1.5cm by 1.5 cm x 0.5 cm) Left ring finger nailbed with Left ring finger distal phalanx closed reduction and percutaneous pinning Implants: 1x 0.45 K wire Surgeon: Skip Mchugh DO [facility] [employer] Department Supervisor: Shaquille Mchugh PA-C: PA was necessary for assistance in this case with hand positioning to execute the procedure, retraction and protection of neurovascular structures as well as to assist with wound closure and dressing application. Anesthesia: General Estimated blood loss: 5mL 32min IV fluids: 1500mL Complications: None Findings: See operative report narrative Condition: stable Disposition: same day Brief History: Patient is a pleasant 49-year-old male established in my practice who underwent a crush injury to the left small and ring fingers with distal phalanx fractures the ring finger is significantly displaced as well as subungual hematomas appreciated. At this point time we talked about treatment options in detail as far as nonoperative versus operative invention through shared decision making patient was proceed with surgical intervention for left small finger and ring finger irrigation debridement with nailbed repair, possible distal phalanx pinning. Patient understands and zealous procedure risk COMPLICATION alternatives surgery and through shared decision make elects proceed with surgical intervention consent obtained in preop. All questions answered. Procedure: Patient was seen evaluate in the preoperative holding area. Consent was reviewed and signed with patient. Correct extremity was then subsequently marked with digits. Patient had dressings on in place. At this point in time was seen evaluated by anesthesia once cleared for surgery was taken back to the operative suite he was kept on the [facility] armboard applied to the left upper extremity. Patient then subsequently underwent anesthesia per the anesthesia department once properly anesthetized the left upper extremity had a nonsterile tourniquet applied to the left upper arm and the left upper extremity was prepped and draped in standard orthopedic fashion. Final timeout performed. Patient received appropriate preoperative antibiotics. At this point time Esmarch tourniquet was used exsanguinate the left upper extremity tourniquet insufflated 250 mmHg. At this point in time I then subsequently started off with the left small finger small incisions were made in the eponychial folds as well as to remove the previously sutured laceration on the ulnar aspect of the digit. I then subsequently utilized a Stanley bluntly and removed the nail plate. I then inspected a nailbed laceration through the sterile matrix there is no involvement in the germinal matrix. I subsequently utilized a Stanley to spread the previous laceration this is down to the fracture site there is no significant displacement. I then subsequently thoroughly irrigated the left small finger and debrided an area of roughly 1.5 cm x 1.5 cm x 0.5 cm this is vital debrided of all hematoma and bilateral tissue of skin subcutaneous fat fascia and any loose fragment of bone. Once this was performed I then inspected this under fluoroscopic imaging there was no significant displacement of the fracture and as a result I then subsequently left the fracture alone with no plan for pinning. At this point in time I then utilized a 5-0 chromic suture to repair the nailbed and then utilized a small drop of the Dermabond to seal up with the nailbed repair I then subsequently proceeded with the left ring finger. This point in time I then made small eponychial fold incisions along the left ring finger utilized a blunt Stanley to bluntly remove the nail plate once the nail plate was removed there is significant laceration through the sterile matrix no appreciable germinal matrix was involved this did come down directly over to the fracture site which was completely disengaged 100%. At this point in time I performed thorough debridement and irrigation of 1.5 cm x 1.5 cm x 0.5 cm of entrapped sterile matrix, subcutaneous tissue hematoma and bony fragmentations. Once this was removed to its entirety I then thoroughly irrigated once more time and then took fluoroscopic imaging it was clearly evident patient had significant displacement I then subsequently reduced the fracture and placed a percutaneous 0.45 K wire in retrograde fashion to pin this fragment to the body and base of the distal phalanx and ran this across the DIP joint for further strength and stability and ran this into the middle phalanx. This was confirmed to being in center center position on fluoroscopic imaging both AP and lateral films. Fracture remained reduced and was stable. At this point in time I then proceeded with repairing the nailbed with 5-0 chromic suture in middle amount of Dermabond glue this was all allowed to set once this was completed I then let the tourniquet down hemostasis was satisfactory. I then thoroughly irrigated once more and then subsequently dressed the fingers with a small amount of Xeroform cut to size for the fingernails and then places underneath the eponychial fold and then subsequently closed the lacerations with standard nylon suture the pin was then subsequently bent cut and capped and then the fingers were dressed with Xeroform 4 x 4's Berto wrap and an Rufus wrap and splints. Patient was then awakened from anesthesia taken back to PACU in stable condition. Disposition: Patient taken back to PACU in stable condition covering will receive appropriate discharge structureless pain medication understands he should be nonweightbearing to the left hand will follow-up in 2 weeks. All questions answered. Patient will also be on p.o. antibiotics for antibiotic infection prophylaxis. All questions answered.
== END 2025-01-16 18:45 | disposition home or self-care (01) ==
PROVIDERS: Anesthesiology; PCP Family Medicine; Visit Provider Student in an Organized Health Care Education/Training Program
PROC: (CPT 26756; principal; 2025-01-16 15:25)
PROC: (CPT 11760; 2025-01-16 15:25)
PROC: (CPT 26432; 2025-01-16 15:25)
DX: S62.635B Displaced fracture of distal phalanx of left ring finger, initial encounter for open fracture (principal); S62.637B Displaced fracture of distal phalanx of left little finger, initial encounter for open fracture; W23.0XXA Caught, crushed, jammed, or pinched between moving objects, initial encounter; Z79.899 Other long term (current) drug therapy; Z79.82 Long term (current) use of aspirin; Z86.14 Personal history of Methicillin resistant Staphylococcus aureus infection; E11.9 Type 2 diabetes mellitus without complications; I10 Essential (primary) hypertension; F31.9 Bipolar disorder, unspecified; F41.9 Anxiety disorder, unspecified; F17.210 Nicotine dependence, cigarettes, uncomplicated; F17.290 Nicotine dependence, other tobacco product, uncomplicated
CPT/HCPCS: 26756; 11760 ×2; 11044; 73130; 76000; 80053; C1713; J0131; J0690; J1100; J1885; J2405; J2704; J2795; J3010; J7030

== ENCOUNTER → 2025-02-04 14:18 | Outpatient (BNVA) | payer MEDICAID, SELFPAY ==
[2025-01-21 11:20] VITALS: BP 123/86; BMI 24.6
== END ==
PROVIDERS: PCP Family Medicine; Visit Provider Student in an Organized Health Care Education/Training Program
DX: S62.635A Displaced fracture of distal phalanx of left ring finger, initial encounter for closed fracture (principal); S62.637A Displaced fracture of distal phalanx of left little finger, initial encounter for closed fracture; X58.XXXA Exposure to other specified factors, initial encounter
CPT/HCPCS: 73130; 99213

== ENCOUNTER → 2025-02-11 07:50 | Outpatient (BNVA) | payer MEDICAID, SELFPAY ==
[2025-01-21 11:20] VITALS: BP 123/86; BMI 24.6
== END ==
PROVIDERS: PCP Family Medicine; Referring Provider Orthopaedic Surgery; Visit Provider Anesthesiology Pain Medicine
DX: M54.2 Cervicalgia (principal); M47.812 Spondylosis without myelopathy or radiculopathy, cervical region; F12.21 Cannabis dependence, in remission; F41.1 Generalized anxiety disorder; F15.21 Other stimulant dependence, in remission
CPT/HCPCS: 99205

== ENCOUNTER → 2025-02-18 08:45 | Outpatient (BNVA) | payer MEDICAID, SELFPAY ==
[2025-01-21 11:20] VITALS: BP 123/86; BMI 24.6
== END ==
PROVIDERS: PCP Family Medicine; Visit Provider Physician Assistant
DX: Z98.890 Other specified postprocedural states (principal); S62.637A Displaced fracture of distal phalanx of left little finger, initial encounter for closed fracture; S62.635A Displaced fracture of distal phalanx of left ring finger, initial encounter for closed fracture; X58.XXXA Exposure to other specified factors, initial encounter
CPT/HCPCS: 73130

== ENCOUNTER 2025-02-18 09:27 | Outpatient (CLI) | payer MEDICAID, SELFPAY ==
[2025-01-21 11:20] VITALS: BP 123/86; BMI 24.6
== END 2025-02-18 09:28 | disposition home or self-care (01) ==
LOC: SOT 09:30
PROVIDERS: PCP Family Medicine; Visit Provider Physician Assistant
DX: Z46.89 Encounter for fitting and adjustment of other specified devices (principal); S62.639D Displaced fracture of distal phalanx of unspecified finger, subsequent encounter for fracture with routine healing; S60.1 Contusion of finger with damage to nail; W31.2XXD Contact with powered woodworking and forming machines, subsequent encounter
CPT/HCPCS: 97760; L3925

== ENCOUNTER → 2025-02-19 11:19 | Outpatient (BNVA) | payer MEDICAID, SELFPAY ==
[2025-01-21 11:20] VITALS: BP 123/86; BMI 24.6
== END ==
PROVIDERS: PCP Family Medicine; Visit Provider Anesthesiology Pain Medicine
DX: M79.18 Myalgia, other site (principal); M54.2 Cervicalgia; F12.21 Cannabis dependence, in remission; F41.1 Generalized anxiety disorder; F15.21 Other stimulant dependence, in remission; M47.812 Spondylosis without myelopathy or radiculopathy, cervical region; F17.210 Nicotine dependence, cigarettes, uncomplicated
CPT/HCPCS: 20553; 99214; J1010; J3490

== ENCOUNTER → 2025-02-27 12:49 | Outpatient (BNVA) | payer MEDICAID, SELFPAY ==
[2025-01-21 11:20] VITALS: BP 123/86; BMI 24.6
== END ==
PROVIDERS: PCP Family Medicine; Visit Provider Orthopaedic Surgery
DX: M47.812 Spondylosis without myelopathy or radiculopathy, cervical region (principal)
CPT/HCPCS: 99213

== ENCOUNTER → 2025-03-11 10:31 | Outpatient (BNVA) | payer MEDICAID, SELFPAY ==
[2025-01-21 11:20] VITALS: BP 123/86; BMI 24.6
== END ==
PROVIDERS: PCP Family Medicine; Visit Provider Student in an Organized Health Care Education/Training Program
DX: Z98.890 Other specified postprocedural states (principal); S62.637D Displaced fracture of distal phalanx of left little finger, subsequent encounter for fracture with routine healing; X58.XXXD Exposure to other specified factors, subsequent encounter
CPT/HCPCS: 73130; 99213

== ENCOUNTER → 2025-03-24 11:23 | Outpatient (BNVA) | payer MEDICAID, SELFPAY ==
[2025-01-21 11:20] VITALS: BP 123/86; BMI 24.6
== END ==
PROVIDERS: PCP Family Medicine; Visit Provider Anesthesiology Pain Medicine
DX: M54.2 Cervicalgia (principal); M47.812 Spondylosis without myelopathy or radiculopathy, cervical region; F12.21 Cannabis dependence, in remission; F41.1 Generalized anxiety disorder; F15.21 Other stimulant dependence, in remission
CPT/HCPCS: 99214